=== PATIENT | male | born 1995 | race Two or more races ===

== ENCOUNTER 2023-05-03 17:30 | Emergency (ER) | payer MEDICAID ==
[~2023-05-03] VITALS: Ht 147.3 cm; Wt 57.0 kg
[2023-05-03 18:21] VITALS: TEMP 98.7
[2023-05-03] MEDS ORDERED: IBUPROFEN 600 MG TABLET PO ONE (20:30)
[2023-05-03] MEDS ORDERED: CYCLOBENZAPRINE HCL 10 MG TABLET PO ONE (20:30)
[2023-05-03] MEDS ORDERED: IBUP-1492 PO (21:01)
[2023-05-03] MEDS ORDERED: CYCL-448 PO (21:01)
[2023-05-03 21:35] VITALS: BP 127/54; PULSE 68; RESP 18
== END 2023-05-03 22:00 | disposition home or self-care (01) ==
LOC: EMS 17:32
DX: S09.90XA Unspecified injury of head, initial encounter (principal); S39.012A Strain of muscle, fascia and tendon of lower back, initial encounter; V98.8XXA Other specified transport accidents, initial encounter; Y93.89 Activity, other specified; Y92.89 Other specified places as the place of occurrence of the external cause; Y99.8 Other external cause status
CPT/HCPCS: 99283